=== PATIENT | female | born 1950 | race Caucasian/White ===

== ENCOUNTER 2017-09-26 06:00 | Day surgery (SDC) | payer MEDICARE ==
[2017-07-25 13:28] VITALS: BMI 23.3
[2017-09-26] MEDS ORDERED: Lidocaine Hydrochloride 10 ML INJ ONE (07:35)
[2017-09-26] MEDS ORDERED: Bupivacaine HCl 0.25% PF (30 ml) Inj ONE (07:35)
[2017-09-26] MEDS ORDERED: ceFAZolin 1 gm FROZEN Premix 1 GM/50 ML ML IVPB ONE (07:35)
[2017-09-26] MEDS ORDERED: Propofol 10 mg/ml Inj (20 ML) ONE (07:59)
[2017-09-26] MEDS ORDERED: Midazolam 2 MG/2 ML VIAL ONE (07:59)
[2017-09-26] MEDS ORDERED: Bacitracin 500 Units/gm Oint Foilpak UD ONE (08:28)
[2017-09-26] MEDS ORDERED: Dexamethasone 4 mg/1 ml ONE (08:39)
--- NOTE | 2017-09-26 08:54 | PCM.SURG1 ---
Surgeon's Initial Post Op Note - Surgeon's Notes Surgeon: Dr. Jayleen DPM Hourly [employer] Staff: Kathrin Rivera DPM Type of Anesthesia: IV Sedation, Local (10 mL of 1:1 mixture of 0.25% marcaine plain to 1% lidocaine plain) Anesthesia Administered By: Dr. Alonso MD Pre-Operative Diagnosis: Left foot painful surgical hardware Operative Findings: See dictation. I: 4mL of dexamethasone 4mg/mL; 10mL of 0.25 % marcaine plain Post-Operative Diagnosis: Left foot painful surgical hardware Operation Performed: Left foot removal of surgical hardware Specimen/Specimens Removed: Left foot 2nd metatarsal screw Estimated Blood Loss: EBL {In ML}: 0 Blood Products Given: N/A Drains Used: No Drains Post-Op Condition: Good Date of Surgery/Procedure: 09/26/17 Time of Surgery/Procedure: 08:50
[2017-09-26] MEDS ORDERED: HYDROmorphone 0.5 mg/0.5 ml ISec IVP PRN (09:07)
[2017-09-26] MEDS ORDERED: Lactated Ringer's 1,000 ML IV SCH (09:15)
[2017-09-26 10:29] VITALS: RESP 16
[2017-09-26 11:06] VITALS: BP 165/79; PULSE 63; TEMP 97.6; O2SAT 99
--- NOTE | 2017-09-26 12:50 | RAD ---
PROCEDURE: Right Foot Radiographs. HISTORY: s/p right foot surgery COMPARISON: 03/22/2016 FINDINGS: BONES: Interval medial metatarsal head re- shaping postsurgical partial resection 1st proximal phalanx. Prior hardware removed. Currently less soft tissue swelling. No periosteal reaction. No interval fractures. Os tibial externum- similar. 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 IMPRESSION: Postsurgical changes. -as referenced above. No interval pathology noted
--- NOTE | 2017-09-26 13:54 | RAD ---
PROCEDURE: Intraoperative Fluoroscopy. HISTORY: RT. PAINFUL SECOND METATARSAL HARDWARE FINDINGS: Fluoroscopic assistance was provided for removal of hardware 2nd digit. Please refer to the operative report from GAIL Danielle. Total fluoroscopic time (continuous mode) utilized during the procedure (seconds) 6.3. Total exam DLP: (mGy) 0.07.
== END 2017-09-26 10:50 | disposition home or self-care (01) ==
LOC: C.SDS 06:00
PROVIDERS: ATTEND Podiatrist Foot & Ankle Surgery
DX: T84.84XA Pain due to internal orthopedic prosthetic devices, implants and grafts, initial encounter (principal); Y83.1 Surgical operation with implant of artificial internal device as the cause of abnormal reaction of the patient, or of later complication, without mention of misadventure at the time of the procedure
CPT/HCPCS: 20680; 73620; 76000; 88300; J0690; J1100; J2250; J2704; J3010

== ENCOUNTER 2018-02-14 11:21 | Day surgery (SDC) | payer MEDICARE ==
[2018-02-06 11:31] VITALS: BMI 23.6
[~2018-02-14 11:21] MED LIST: Bupivacaine 0.25% 20 ML INJ IJ ONE; EPINEPHrine 1:1000 Nasal Sol(30mL) ONE; Lidocaine/Epinephrine 1% 1:100000 10 ML IJ ONE; ceFAZolin 1 gm FROZEN Premix 1 GM/50 ML ML IVPB ONE
[2018-02-14] MEDS ORDERED: Midazolam 2 MG/2 ML VIAL ONE (15:59)
[2018-02-14] MEDS ORDERED: Propofol 10 mg/ml Inj (20 ML) ONE (15:59)
--- NOTE | 2018-02-14 16:54 | CP.PCM.PN ---
Subjective - Date & Time of Evaluation Date of Evaluation: 02/14/18 Time of Evaluation: 16:49 - Subjective Subjective: Start of surgery delayed because prior to induction, OR staff informed me that a piece of equipment needed to be sterilized. This resulted in approximately 45 minute delay. Patient taken to PACU while waiting for instrument. Patient and , Cristian, informed of delay and patient decided to proceed with surgery. Objective - Vital Signs/Intake and Output Vital Signs (last 24 hours): Temp Pulse Resp BP Pulse Ox 98.0 F 90 20 145/82 97 02/14/18 12:11 02/14/18 12:11 02/14/18 12:11 02/14/18 12:11 02/14/18 12:11 - Medications Medications: Current Medications Ibuprofen (Motrin Tab) 800 mg PO ONCE PRN PRN Reason: Pain, Mild (1-3) Ketorolac Tromethamine (Toradol) 30 mg IVP ONCE PRN PRN Reason: Pain, moderate (4-7)
[2018-02-14] MEDS ORDERED: ceFAZolin IV 1 gm in Dextrose 1 GM/50 ML BAG IVPB ONE (17:04)
--- NOTE | 2018-02-14 18:00 | PCM.SURG1 ---
Surgeon's Initial Post Op Note - Surgeon's Notes Surgeon: Lisa Sales MD Mold Blower: Ravinder Crook PA-C Type of Anesthesia: General Endo Anesthesia Administered By: Dr. Bermudez Pre-Operative Diagnosis: L knee meniscus tear Operative Findings: see full note Post-Operative Diagnosis: same Operation Performed: left knee arthroscopy with medial and lateral menisectomies Specimen/Specimens Removed: none Estimated Blood Loss: EBL {In ML}: 5 Blood Products Given: N/A Drains Used: No Drains Post-Op Condition: Fair Date of Surgery/Procedure: 02/14/18 Time of Surgery/Procedure: 18:00
[2018-02-14] MEDS ORDERED: Lactated Ringer's 500 ML IV ONE (18:02)
[2018-02-14 19:59] VITALS: BP 145/76; PULSE 92; RESP 20; TEMP 98.1; O2SAT 99
--- NOTE | 2018-02-15 05:23 | OP ---
PROCEDURE DATE: 02/14/2018 PREOPERATIVE DIAGNOSES: Left knee medial and lateral meniscal tears, degenerative joint disease. POSTOPERATIVE DIAGNOSIS: Left knee medial and lateral meniscal tears, degenerative joint disease. PROCEDURE: Left knee arthroscopy with medial and lateral meniscectomy. SURGEON: Judson Sales MD. [employer]: Dr. Capri Crook, physician periodontal assistant. Armaan was scrubbed and present throughout the entire case and assisted in patient positioning, manipulation of the extremity and wound closure. ANESTHESIA: General. COMPLICATIONS: None. ESTIMATED BLOOD LOSS: 5 mL. INDICATIONS FOR PROCEDURE: This is a 67-year-old female who presented with longstanding left knee pain. Clinical examination was consistent with significant joint line tenderness, pain at the extremes of knee flexion. MRI examination was consistent with complex tear of the lateral meniscus as well as the tear of the medial meniscus as well as degenerative changes. After a period of failed nonsurgical management, recommendations were for left knee arthroscopy. The risks, benefits, and alternatives of procedure were discussed with the patient and informed consent was obtained. OPERATIVE PROCEDURE: After surgical site was finally verified in the perioperative holding area, the patient was taken to the operating room and placed supine on the operating room table. After initiation of general anesthesia, the patient received 1 g of Ancef IV. Tourniquet was placed about the left thigh. Care was taken to make sure bony prominences and nerves were well padded and protected and the left lower extremity was prepped and draped in usual sterile fashion. Bony landmarks were identified about the left knee. The portal sites were injected with a total of 10 mL of 1% lidocaine with epinephrine. An anterolateral arthroscopy portal was established and arthroscope was inserted into the knee joint. Patellofemoral articulation was evaluated. 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 Medial and lateral gutters as well as suprapatellar recess were going to be free of any loose bodies or pathologic plica. Knee was taken through range of motion, and the patella was noted to track normally in the trochlea. At this point, the medial compartment was evaluated through an anteromedial portal. The medial meniscus was probed. The patient was noted to have a small tear at the posterior horn to the mid body junction at the meniscus. Using a combination of basket forceps and a full-radius shaver, a meniscectomy was performed resecting it back to a stable rim. Chondral surfaces of the medial compartment was noted to have some grade 1 to 2 changes. Anterior horn of the meniscus appeared to be intact. Next, the intercondylar notch was evaluated. ACL was well visualized, probed, and appeared to be intact. PCL was also visualized and appeared to be intact. Finally, the lateral compartment was evaluated. The lateral meniscus was probed. The patient was noted to have a complex tear of the entire posterior horn extending into the mid body of the lateral meniscus. There was a radial as well as a under surface tearing with a flap. Using combination of basket forceps and full radius shaver, meniscectomy was performed. Almost the entire posterior horn was resected and a small rim was left intact and in continuity with the of the meniscus. Anterior horn appeared to be intact. Chondral surface of the lateral compartment has a grade 2 to grade 3 changes. The popliteus tendon was also visualized and appeared to be intact. At this point, the knee joint was irrigated with arthroscopic canal which was removed. Portal sites were closed using interrupted 3-0 Monocryl and Dermabond from the skin. Sterile dressing was applied. The patient was awakened from the procedure and taken to recovery room in stable condition. Judson Sales MD
== END 2018-02-14 19:50 | disposition home or self-care (01) ==
LOC: C.SDS 11:21
PROVIDERS: ATTEND Orthopaedic Surgery
DX: S83.232D Complex tear of medial meniscus, current injury, left knee, subsequent encounter (principal); S83.272D Complex tear of lateral meniscus, current injury, left knee, subsequent encounter; M17.12 Unilateral primary osteoarthritis, left knee
CPT/HCPCS: 29880; 97116; 97161; G8978; G8979; G8980; J0690; J1885; J2001; J2250; J2270; J2405; J2704; J3010; J7120